=== PATIENT | male | born 1950 | race Caucasian/White ===

== ENCOUNTER 2023-03-02 08:13 | Day surgery (SDC) | payer OTHER, MEDICARE, SELFPAY ==
[2023-03-02] MEDS: Lactated Ringers 1,000 ML 15 ML IV (08:52)
[2023-03-02 08:53] VITALS: BP 138/66; PULSE 61; RESP 18; TEMP 36.8; O2SAT 99; BMI 26.7
--- NOTE | 2023-03-02 09:06 | HP.PCM_ITS ---
History and Physical Date of Admission: 03/02/23 Intake Vital Signs ? 02/07/2313:33 Height 5 ft 6 in Weight: 167 lb BMI 26.9 BP 126/67 H Blood Pressure LocationB Rt brachial Position Sitting Respiration 17 Pulse 56 L Pulse Source Palpation Temp 97.8 F Temp Source Temporal Pulse Oximetry (%) 95 Oxygen Delivery Method room air Intake Visit Reasons:?C-Scope/EGD Is patient in pain?: No Allergies No Known Allergies Allergy (Unverified 02/07/23 13:31) Medications amlodipine 5 mg tablet 5 mg PO DAILY 02/07/23 [History Confirmed 02/07/23] brinzolamide 1 %-brimonidine 0.2 % eye drops,suspension (Simbrinza) 1 drp ophthalmic (eye) DAILY 02/07/23 [History Confirmed 02/07/23] latanoprost 0.005 % eye drops 1 drp ophthalmic (eye) BID 02/07/23 [History Confirmed 02/07/23] levothyroxine 112 mcg capsule 112 mcg PO DAILY 02/07/23 [History Confirmed 02/07/23] lisinopril 40 mg tablet 40 mg PO DAILY 02/07/23 [History Confirmed 02/07/23] omeprazole 20 mg capsule,delayed release 20 mg PO DAILY 02/07/23 [History Confirmed 02/07/23] rosuvastatin 5 mg tablet 5 mg PO DAILY 02/07/23 [History Confirmed 02/07/23] PFSH Medical History?(Updated 02/07/23 @ 13:[address] Armani Tariq MD) GERD (gastroesophageal reflux disease) Gout Hemorrhoid High blood pressure Surgical History?(Updated 02/07/23 @ 13:38 by Gail Wells) History of total knee arthroplasty Family History?(Updated 02/07/23 @ 13:39 by Gail Wells) Other Cancer Heart disease High cholesterol Hypertension Social History?(Updated 02/07/23 @ 13:38 by Gail Wells) Smoking Status:? Former smoker alcohol intake:? never substance use type:? does not use HPI HPI HPI: Patient is a 72-year-old male here for double scope.? Patient was referred here because he had a polyp 5 years ago on colonoscopy.? He is due for surveillance colonoscopy.? He denies any blood in his stool.? He does have intermittent right upper quadrant pain but says this has not happened in a year and a half.? Patient also describes some dysphagia especially with meats. ROS General General: No weight change, fatigue, colon cancer or breast cancer HEENT HEENT: No difficulty swallowing, eye injury, eye surgery or swollen glands Endo Endocrine: No thyroid disease, diabetes mellitus or thyroid cancer Skin Skin: No rash or changing moles Musc Musculoskeletal: Yes gout; No back problems, arthritis or rheumatoid arthritis Cardio Cardiovascular: Yes high blood pressure; No murmur, pacemaker, heart disease, atrial fibrillation, heart attack or heart stent Psych Psychiatric: No depression or anxiety Resp Respiratory: No shortness of breath, No sleep apnea, No cough, No COPD, No asthma and No emphysema Gastro Gastrointestinal: No abdominal pain, No nausea or vomiting, No diarrhea, No constipation, No blood in stool, Yes acid reflux, Yes hemorrhoids, No ulcers, Yes gallbladder problem and No black,tarry stools Pablo Hematologic: No blood thinners, No blood disorders, No bleeding, No anemia and No blood clots Additional Details: Occasional use of aspirin per patient. Neuro Neurologic: No numbness and No tingling Exam Const General: cooperative Orientation: alert and oriented x3 HENMT Head: normal to inspection Neck Neck: normal visual inspection and full ROM Chest Chest palpation & inspection: normal inspection of the chest Resp Effort & Inspection: normal respiratory effort Auscultation: clear to auscultation bilaterally Cardio Rate: regular rate Rhythm: regular rhythm GI Inspection: non-distended Palpation: soft and nontender Skin General: no rashes or lesions noted Neuro General: patient alert and patient oriented x3 Extrem General: full ROM Psych Appearance: grossly normal Mental Status: mental status grossly normal Assessment and Plan Assessment and Plan (1) History of colon polyps: ?Status:?Acute (2) Dysphagia: ?Status:?Acute ?Qualifiers: ?Dysphagia type:?esophageal phase? Qualified Code(s):?R13.19 - Other dysphagia ? ? ? Orders: Orders Colonoscopy Today ? ? EGD Today ? ? Plan Patient has dysphagia with meats and he has a history of GERD.? He is on a PPI.? He was sent for here for EGD to evaluate for portal hypertension as well.? Patient has a history of possible cirrhosis seen on CT scan.? Patient also has a history of colon polyp found in 2018 and he is due for surveillance colonoscopy.? Plan for EGD and colonoscopy and I will ask him to hold his aspirin for 5 days. I explained endoscopy in detail to the patient.? I explained the risks including but not limited to stroke or heart attack with anesthesia, perforation of the GI tract, bleeding, infection.? I explained that any of these could necessitate further emergency surgery.? The patient understands and all questions were answered sufficiently.? The patient wishes to proceed with procedure. Armani Tariq MD Pager: [facility] [address] [place] [address], [address] [place] [address] Office: I have examined the patient and the H&P has been reviewed. There are no clinical changes since date of exam.
[2023-03-02 09:41] VITALS: BP 138/66; BP 84/64; PULSE 82; RESP 12; TEMP 36.6; O2SAT 95
[2023-03-02 09:45] VITALS: BP 138/66; BP 86/54; PULSE 77; RESP 12; O2SAT 96
--- NOTE | 2023-03-02 09:53 | OP.EGD_ITS ---
Patient Name: Joni Maldonado Procedure Date: 03/02/2023 9:13 AM Date of : 1950 Age: 72 Procedure: Upper GI endoscopy Indications: Dysphagia Providers: Armani Tariq MD Referring MD: [facility] Medicines: Propofol per Anesthesia Patient Profile: This is a 72 year old male. Refer to note in patient chart for documentation of history and physical. Complications: No immediate complications. Procedure: Pre-Anesthesia Assessment: - Prior to the procedure, a History and Physical was performed, and patient medications and allergies were reviewed. The patient's tolerance of previous anesthesia was also reviewed. The risks and benefits of the procedure and the sedation options and risks were discussed with the patient. All questions were answered, and informed consent was obtained. Prior Anticoagulants: The patient has taken no previous anticoagulant or antiplatelet agents. After reviewing the risks and benefits, the patient was deemed in satisfactory condition to undergo the procedure. After obtaining informed consent, the endoscope was passed under direct vision. Throughout the procedure, the patient's blood pressure, pulse, and oxygen saturations were monitored continuously. The Endoscope was introduced through the mouth, and advanced to the third part of duodenum. The upper GI endoscopy was accomplished without difficulty. The patient tolerated the procedure well. Scope In: 9:21:48 AM Scope Out: 9:23:20 AM Total Procedure Duration Time 0 hours 1 minute 32 seconds Findings: The esophagus was normal. The stomach was normal. The examined duodenum was normal. Impression: - Normal esophagus. - Normal stomach. - Normal examined duodenum. - No specimens collected. Recommendation: - Discharge patient to home. - Resume previous diet. - Continue present medications. Procedure Code(s): --- Professional --- 56312, Esophagogastroduodenoscopy, flexible, transoral; diagnostic, including collection of specimen(s) by brushing or washing, when performed (separate procedure) Diagnosis Code(s): --- Professional --- R13.10, Dysphagia, unspecified CPT copyright 2017 [employer]. All rights reserved. The codes documented in this report are preliminary and upon bread molder review may be revised to meet current compliance requirements. Armani Tariq MD 03/02/2023 9:53:24 AM This report has been signed electronically. Number of Addenda: 0 Note Initiated On: 03/02/2023 9:13 AM
--- NOTE | 2023-03-02 09:54 | OP.CCLET_ITS ---
03/02/2023 [facility] Re : Upper GI endoscopy procedure for [facility] This procedure was performed on Thursday, March 02, 2023. My impressions and recommendations are as follows: Impressions : - Normal esophagus. - Normal stomach. - Normal examined duodenum. - No specimens collected. Recommendations : - Discharge patient to home. - Resume previous diet. - Continue present medications. My findings are described in the full procedure note, which is enclosed. If I can be of further assistance, please feel free to contact me at Doctor phone number(s): , Work: . Sincerely, Armani Tariq MD 03/02/2023 9:53:24 AM This report has been signed electronically.
--- NOTE | 2023-03-02 09:55 | OP.CCLET_ITS ---
03/02/2023 [facility] Re : Colonoscopy procedure for [facility] This procedure was performed on Thursday, March 02, 2023. My impressions and recommendations are as follows: Impressions : - The entire examined colon is normal on direct and retroflexion views. - No specimens collected. Recommendations : - Discharge patient to home. - Resume previous diet. - Continue present medications. - Repeat colonoscopy is not recommended due to current age (66 years or older) for screening purposes. My findings are described in the full procedure note, which is enclosed. If I can be of further assistance, please feel free to contact me at Doctor phone number(s): , Work: . Sincerely, Armani Tariq MD 03/02/2023 9:54:50 AM This report has been signed electronically.
--- NOTE | 2023-03-02 09:55 | OP.COLON_ITS ---
Patient Name: Joni Maldonado Procedure Date: 03/02/2023 9:25 AM Date of : 1950 Age: 72 Procedure: Colonoscopy Indications: High risk colon cancer surveillance: Personal history of colonic polyps Providers: Armani Tariq MD Referring MD: Medicines: Monitored Anesthesia Care Patient Profile: This is a 72 year old male. Refer to note in patient chart for documentation of history and physical. Last Colonoscopy: 10 years ago. Complications: No immediate complications. Procedure: Pre-Anesthesia Assessment: - Prior to the procedure, a History and Physical was performed, and patient medications and allergies were reviewed. The patient's tolerance of previous anesthesia was also reviewed. The risks and benefits of the procedure and the sedation options and risks were discussed with the patient. All questions were answered, and informed consent was obtained. Prior Anticoagulants: The patient has taken no previous anticoagulant or antiplatelet agents. After reviewing the risks and benefits, the patient was deemed in satisfactory condition to undergo the procedure. After I obtained informed consent, the scope was passed under direct vision. Throughout the procedure, the patient's blood pressure, pulse, and oxygen saturations were monitored continuously. The Colonoscope was introduced through the anus and advanced to the cecum, identified by appendiceal orifice and ileocecal valve. The colonoscopy was performed without difficulty. The patient tolerated the procedure well. The quality of the bowel preparation was good. Scope In: 9:26:06 AM Scope Withdrawal Time 0 hours 4 minutes 33 seconds Scope Out: 9:38:01 AM Total Procedure Duration Time 0 hours 11 minutes 55 seconds Findings: The entire examined colon appeared normal on direct and retroflexion views. Impression: - The entire examined colon is normal on direct and retroflexion views. - No specimens collected. Recommendation: - Discharge patient to home. - Resume previous diet. - Continue present medications. - Repeat colonoscopy is not recommended due to current age (66 years or older) for screening purposes. Procedure Code(s): --- Professional --- 40046, Colonoscopy, flexible; diagnostic, including collection of specimen(s) by brushing or washing, when performed (separate procedure) Diagnosis Code(s): --- Professional --- Z86.010, Personal history of colonic polyps CPT copyright 2017 [employer]. All rights reserved. The codes documented in this report are preliminary and upon sales promotion representative review may be revised to meet current compliance requirements. Armani Tariq MD 03/02/2023 9:54:50 AM This report has been signed electronically. Number of Addenda: 0 Note Initiated On: 03/02/2023 9:25 AM
[2023-03-02 09:56] VITALS: BP 102/56; BP 138/66; PULSE 70; RESP 14; O2SAT 96
[2023-03-02 10:00] VITALS: BP 111/72; BP 138/66; PULSE 72; RESP 16; TEMP 36.4; O2SAT 95
[2023-03-02 10:40] VITALS: BP 138/66
== END 2023-03-02 10:40 | disposition home or self-care (01) ==
LOC: EN 08:15 → AC 08:21
PROVIDERS: Visit Provider Surgery
PROC: 0DJD8ZZ Inspection of Lower Intestinal Tract, Via Natural or Artificial Opening Endoscopic (ICD-10-PCS; CPT 45378; principal; 2023-03-02 09:25)
DX: Z12.11 Encounter for screening for malignant neoplasm of colon (principal); J44.9 Chronic obstructive pulmonary disease, unspecified; Z87.891 Personal history of nicotine dependence; Z86.010 Personal history of colon polyps; K21.9 Gastro-esophageal reflux disease without esophagitis; Z79.899 Other long term (current) drug therapy; E78.00 Pure hypercholesterolemia, unspecified; I10 Essential (primary) hypertension; E07.9 Disorder of thyroid, unspecified; Z79.890 Hormone replacement therapy
CPT/HCPCS: G0105; 43235; J7120; J2405